=== PATIENT | female | born 1995 | race American Indian/Alaskan Native ===

== ENCOUNTER 2016-05-08 17:45 | Emergency (ER) | payer SELFPAY ==
[2016-05-08 17:56] VITALS: BP 148/104
--- NOTE | 2016-05-08 18:06 | Emergency Department Report ---
Chief Complaint: Abdominal Pain Stated Complaint: ABD PAIN /BLOATED Time Seen by Provider: 05/08/16 18:12 - HPI History of Present Illness: Patient presents with LLQ abdominal pain that radiates to the left side. Patient states abdominal pain has now resolved. She admits to being on her menstrual cycle now, denies urinary frequency, urgency, pain. She denies fever , chills, nausea, vomiting. She states that this pain hit her at one time and lasted approximately 5 minutes but has now resolved. Occurrence was today. She states she has never had this pain in the past. - ROS Review of Systems: All other systems unremarkable except documentation in HPI - Exam Vital Signs: Vital Signs 05/08/16 17:51 Temperature 98.7 F Pulse Rate 82 Respiratory 20 Rate Blood Pressure 148/104 O2 Sat by Pulse 99 Oximetry Physical Exam: Gen: Female well-developed and nourished, no apparent distress noted, ambulatory. Cardiovascular: Heart sounds present S1-S2, no murmur, gallop, edema or ectopy noted, 2+ pulses upper and lower extremities Respiratory: Chest symmetry with respirations, lungs clear to auscultate upper and lower lobes, respirations even and unlabored, no rales, rhonchi, crackles noted. Abdomen: bowel sounds present, soft, nondistended, nontender, no rigidity, guarding or rebound tenderness Psych: AxOx3, answers questions appropriately, mood full range, affect normal, normal speech and tone. MSE screening note: Focused history and physical exam performed. Due to findings the following was ordered: seen by provider, laboratory studies ordered, and to go to main ED to be seen by physician ED Medical Decision Making - Medical Decision Making seen by provider, laboratory studies ordered, and to go to main ED to be seen by physician ED Disposition for MSE Condition: Stable Instructions: Abdominal Pain (ED)
[2016-05-08 18:36] LABS: Basophils % (Auto) 0.4 % (0.0-1.8); Eosinophils % (Auto) 3.3 % (0.0-4.3); Hematocrit 38.5 % (30.3-42.9); Hemoglobin 12.5 gm/dl (10.1-14.3); Mean Corpuscular HGB Conc 32 % (30-34); Mean Corpuscular Hemoglobin 26 pg (28-32); Mean Corpuscular Volume 80 fl (79-97); Platelet Count 320 K/mm3 (140-440); Red Cell Distribution Width 14.8 % (13.2-15.2)
[2016-05-08 18:47] LABS: Bilirubin,Urine NEG (Negative); Blood,Urine MOD (Negative); Ketones,Urine NEG (Negative); Leukocyte Esterase,Urine SM (Negative); Nitrite,Urine NEG (Negative); Protein,Urine <15 mg/dL mg/dL (Negative); Urobilinogen,Urine < 2.0 mg/dL (<2.0)
[2016-05-08 18:56] LABS: Anion Gap 18 mmol/L; BUN/Creatinine Ratio 13.33; Blood Urea Nitrogen 8 mg/dL (7-17); Calcium 9.2 mg/dL (8.4-10.2); Carbon Dioxide 26 mmol/L (22-30); Glucose 114 mg/dL (65-100); Potassium 3.8 mmol/L (3.6-5.0); Sodium 139 mmol/L (137-145)
--- NOTE | 2016-05-10 15:14 | ED Elopement Review ---
ED Pt Elopement review - Results review Lab results: Laboratory Tests 05/08/16 05/08/16 05/08/16 18:18 18:23 18:23 WBC 6.0 RBC 4.80 Hgb 12.5 Hct 38.5 MCV 80 MCH 26 L MCHC 32 RDW 14.8 Plt Count 320 Lymph % (Auto) 45.5 H [place] % (Auto) 6.2 Eos % (Auto) 3.3 Baso % (Auto) 0.4 Lymph # 2.8 [place] # 0.4 Eos # 0.2 Baso # 0.0 Seg Neutrophils % 44.6 Seg Neutrophils # 2.7 Sodium 139 Potassium 3.8 Chloride 99.0 Carbon Dioxide 26 Anion Gap 18 BUN 8 Creatinine 0.6 L Estimated GFR > 60 BUN/Creatinine Ratio 13.33 Glucose 114 H Calcium 9.2 HCG, Qual Urine Color Yellow Urine Turbidity Clear Urine pH 6.0 Ur Specific [place] 1.012 Urine Protein <15 mg/dl Urine Glucose (UA) Neg Urine Ketones Neg Urine Blood Mod Urine Nitrite Neg Urine Bilirubin Neg Urine Urobilinogen < 2.0 Ur Leukocyte Esterase Sm Urine WBC (Auto) 7.0 H Urine RBC (Auto) 4.0 U Epithel Cells (Auto) 1.0 05/08/16 18:23 WBC RBC Hgb Hct MCV MCH MCHC RDW Plt Count Lymph % (Auto) [place] % (Auto) Eos % (Auto) Baso % (Auto) Lymph # [place] # Eos # Baso # Seg Neutrophils % Seg Neutrophils # Sodium Potassium Chloride Carbon Dioxide Anion Gap BUN Creatinine Estimated GFR BUN/Creatinine Ratio Glucose Calcium HCG, Qual Negative Urine Color Urine Turbidity Urine pH Ur Specific [place] Urine Protein Urine Glucose (UA) Urine Ketones Urine Blood Urine Nitrite Urine Bilirubin Urine Urobilinogen Ur Leukocyte Esterase Urine WBC (Auto) Urine RBC (Auto) U Epithel Cells (Auto) - Call Back decision Pt Call Back Decision: No action required
== END 2016-05-08 21:10 | disposition left against medical advice (07) ==
LOC: ED 17:45
DX: R10.9 Unspecified abdominal pain (principal); Z53.21 Procedure and treatment not carried out due to patient leaving prior to being seen by health care provider
CPT/HCPCS: 36415; 80048; 81001; 84703; 85025

== ENCOUNTER 2018-05-22 14:28 | Emergency (ER) | payer BC ==
--- NOTE | 2018-05-22 16:41 | Emergency Department Report ---
Chief Complaint: Sore Throat Stated Complaint: LFT SIDE TOOTH/THROAT PAIN Time Seen by Provider: 05/22/18 16:31 - HPI History of Present Illness: Pt presents to the ED with dental pain/throat pain got her wisdom teeth removed left sided swelling has not called dentist pt is already on amoxicillin, also on hydrocodone no fever uvula shifts to the left concern for peritonsillar abscess vs cellulitis MSE screening note: Focused history and physical exam performed. Due to findings the following was ordered: labs, CT neck ED Disposition for MSE Condition: Stable
[2018-05-22] MEDS ORDERED: NACL 0.9% 1000 ML 1,000 ML IV ONE ×3 (16:42→23:25)
[2018-05-22] MEDS ORDERED: MORPHINE IV ONE (16:42)
[2018-05-22 17:34] LABS: Basophils % (Auto) 0.3 % (0.0-1.8); Eosinophils % (Auto) 0.1 % (0.0-4.3); Hematocrit 38.6 % (30.3-42.9); Hemoglobin 12.4 gm/dl (10.1-14.3); Lymphocytes # (Auto) 2.4 K/mm3 (1.2-5.4); Lymphocytes % (Auto) 20.6 % (13.4-35.0); Mean Corpuscular HGB Conc 32 % (30-34); Mean Corpuscular Volume 80 fl (79-97); Monocytes # (Auto) 0.9 K/mm3 (0.0-0.8); Monocytes % (Auto) 7.4 % (0.0-7.3); Platelet Count 318 K/mm3 (140-440); Red Blood Count 4.82 M/mm3 (3.65-5.03); Red Cell Distribution Width 14.5 % (13.2-15.2)
--- NOTE | 2018-05-22 18:19 | Emergency Department Report ---
ED ENT HPI - General Chief complaint: Sore Throat Stated complaint: LFT SIDE TOOTH/THROAT PAIN Time Seen by Provider: 05/22/18 16:31 Source: patient Mode of arrival: Ambulatory Limitations: No Limitations - History of Present Illness Initial comments: Sustained 23-year-old -Australian female presents with a sore throat and left side of dental pain for 6 days. The patient states she had 4 wisdom teeth removed last Saturday. She was placed on antibiotics and given Delaplaine and steroids to control swelling and infection. Patient states there was a piece of bone sticking up on the left side so she followed up with oral surgeon and [facility] on [address] yesterday who shaved area down. She now complains of severe pain on left side. Patient reports pain is increased today and on control with Delaplaine. MD complaint: tooth pain Onset/Timin -: days(s) Location: throat, tooth # (#16 and #17) Severity: severe Severity scale (0 -10): 10 Quality: stabbing, sharp, constant Consistency: constant Improves with: none Worsens with: swallowing, eating Context- Dental: other (#1, #16, #17 and #32 extractions) Associated Symptoms: toothache - Related Data Previous Rx's Medication Instructions Recorded Last Taken Type Clindamycin [Clindamycin CAP] 300 mg PO Q8H #21 cap 05/22/18 Unknown Rx Allergies Allergy/AdvReac Type Severity Reaction Status Date / Time No Known Allergies Allergy Verified 05/22/18 14:31 ED Dental HPI - General Chief complaint: Sore Throat Stated complaint: LFT SIDE TOOTH/THROAT PAIN Time Seen by Provider: 05/22/18 16:31 Source: patient Mode of arrival: Ambulatory Limitations: No Limitations - Related Data Previous Rx's Medication Instructions Recorded Last Taken Type Clindamycin [Clindamycin CAP] 300 mg PO Q8H #21 cap 05/22/18 Unknown Rx Allergies Allergy/AdvReac Type Severity Reaction Status Date / Time No Known Allergies Allergy Verified 05/22/18 14:31 ED Review of Systems ROS: Stated complaint: LFT SIDE TOOTH/THROAT PAIN Other details as noted in HPI Constitutional: denies: chills, fever ENT: dental pain. denies: ear pain, throat pain Respiratory: denies: cough, shortness of breath, wheezing Cardiovascular: denies: chest pain, palpitations Gastrointestinal: denies: abdominal pain, nausea, diarrhea Skin: denies: rash, lesions Neurological: denies: headache, weakness, paresthesias Psychiatric: denies: anxiety, depression ED Past Medical Hx - Past Medical History Previous Medical History?: No - Surgical History Past Surgical History?: Yes Additional Surgical History: Heart ablation @ age 5 - Social History Smoking Status: Never Smoker Substance Use Type: None - Medications Home Medications: Home Medications Medication Instructions Recorded Confirmed Last Taken Type Clindamycin [Clindamycin CAP] 300 mg PO Q8H #21 cap 05/22/18 Unknown Rx ED Physical Exam - General Limitations: No Limitations General appearance: alert, in no apparent distress, obese (morbidly obese) - ENT ENT exam: Present: mucous membranes moist, other (moderate swelling to left posterior mucosal area of #17, tooth removed with sutures placed, tenderness, uvula midline) - Respiratory Respiratory exam: Present: normal lung sounds bilaterally. Absent: respiratory distress - Cardiovascular Cardiovascular Exam: Present: regular rate, normal rhythm. Absent: systolic murmur, diastolic murmur, rubs, gallop - GI/Abdominal GI/Abdominal exam: Present: soft, normal bowel sounds - Neurological Exam Neurological exam: Present: alert, oriented X3 - Psychiatric Psychiatric exam: Present: normal affect, normal mood - Skin Skin exam: Present: warm, dry, intact, normal color. Absent: rash ED Course Vital Signs 05/22/18 05/22/18 05/22/18 16:32 17:47 23:20 Temperature 98.9 F Pulse Rate 113 H 122 H Respiratory 16 18 19 Rate Blood Pressure 132/84 Blood Pressure 125/78 [Right] O2 Sat by Pulse 98 Oximetry 05/23/18 05/23/18 00:21 00:45 Temperature 99.0 F 99.6 F Pulse Rate 108 H 110 H Respiratory 18 18 Rate Blood Pressure Blood Pressure 120/71 [Right] O2 Sat by Pulse 100 97 Oximetry ED Medical Decision Making - Lab Data Result diagrams: 05/22/18 17:15 05/22/18 17:15 Lab Results 05/22/18 05/22/18 05/22/18 Range/Units 17:15 17:15 18:27 WBC 11.7 H (4.5-11.0) K/mm3 RBC 4.82 (3.65-5.03) M/mm3 Hgb 12.4 (10.1-14.3) gm/dl Hct 38.6 (30.3-42.9) % MCV 80 (79-97) fl MCH 26 L (28-32) pg MCHC 32 (30-34) % RDW 14.5 (13.2-15.2) % Plt Count 318 (140-440) K/mm3 Lymph % (Auto) 20.6 (13.4-35.0) % [place] % (Auto) 7.4 H (0.0-7.3) % Eos % (Auto) 0.1 (0.0-4.3) % Baso % (Auto) 0.3 (0.0-1.8) % Lymph # 2.4 (1.2-5.4) K/mm3 [place] # 0.9 H (0.0-0.8) K/mm3 Eos # 0.0 (0.0-0.4) K/mm3 Baso # 0.0 (0.0-0.1) K/mm3 Seg Neutrophils % 71.6 H (40.0-70.0) % Seg Neutrophils # 8.4 H (1.8-7.7) K/mm3 Sodium 136 L (137-145) mmol/L Potassium 4.1 (3.6-5.0) mmol/L Chloride 96.6 L (98-107) mmol/L Carbon Dioxide 22 (22-30) mmol/L Anion Gap 22 mmol/L BUN 8 (7-17) mg/dL Creatinine 0.7 (0.7-1.2) mg/dL Estimated GFR > 60 ml/min BUN/Creatinine Ratio 11 % Glucose 109 H (65-100) mg/dL Calcium 9.3 (8.4-10.2) mg/dL HCG, Qual (Negative) Urine HCG, Qual Negative (Negative) 05/22/18 Range/Units Unknown WBC (4.5-11.0) K/mm3 RBC (3.65-5.03) M/mm3 Hgb (10.1-14.3) gm/dl Hct (30.3-42.9) % MCV (79-97) fl MCH (28-32) pg MCHC (30-34) % RDW (13.2-15.2) % Plt Count (140-440) K/mm3 Lymph % (Auto) (13.4-35.0) % [place] % (Auto) (0.0-7.3) % Eos % (Auto) (0.0-4.3) % Baso % (Auto) (0.0-1.8) % Lymph # (1.2-5.4) K/mm3 [place] # (0.0-0.8) K/mm3 Eos # (0.0-0.4) K/mm3 Baso # (0.0-0.1) K/mm3 Seg Neutrophils % (40.0-70.0) % Seg Neutrophils # (1.8-7.7) K/mm3 Sodium (137-145) mmol/L Potassium (3.6-5.0) mmol/L Chloride (98-107) mmol/L Carbon Dioxide (22-30) mmol/L Anion Gap mmol/L BUN (7-17) mg/dL Creatinine (0.7-1.2) mg/dL Estimated GFR ml/min BUN/Creatinine Ratio % Glucose (65-100) mg/dL Calcium (8.4-10.2) mg/dL HCG, Qual Negative (Negative) Urine HCG, Qual (Negative) - Radiology Data Radiology results: report reviewed PROCEDURE: CT NECK W CON HISTORY: recent dental procedure, r/o peritonsillar abscess FINDINGS: Contrast-enhanced CT of the neck was performed following the intravenous administration of iodinated contrast. There is a left superior pharyngeal abscess, immediately posterior to the maxilla and pterygoid plates, axial image 19, sagittal image 52, 2.2 x 2.0 x 2.2 cm. There is a normal epiglottis. The larynx is within normal limits. There is a right submandibular circumscribed fat density structure, consistent with lipoma, axial image 46, sagittal image 68, 1.9 x 2.1 x 1.4 cm. The right and left common carotid, internal carotid, external carotid and vertebral arteries appear widely patent. The pulmonary apices appear clear. IMPRESSION: Left superior pharyngeal abscess posterior to left pterygoid plates and left maxilla - Medical Decision Making This is a 23-year-old female that presents with tooth abscess and pain to left lower side. Patient is stable and was examined by me. Given morphine, norco, and normal saline in ER. A CBC, BMP, tests, and CT of neck was obtained. Consult with radiologist who states there is a posterior abscess to left maxilla in the same area where patient had wisdom tooth removed. There is not a peritonsillar abscess visualized. Patient given clindamicyin 600 mg IV. Dental abscess left posterior maxilla. Instructed to stop taken Augmentin and start clindamycin. Patient will need to follow-up with dentist [facility] for further management. Discussed plan with patient. She agreed with ER plan. Discharged home with clindamycin and instructed to continue taking norco presc ribed by dentist. Follow up with dentist and referral to ENT. Critical care attestation.: If time is entered above; I have spent that time in minutes in the direct care of this critically ill patient, excluding procedure time. ED Disposition Clinical Impression: Dental abscess, Toothache Disposition: TO HOME OR SELFCARE Is pt being admited?: No Does the pt Need Aspirin: No Condition: Stable Instructions: Dental Abscess (ED) Additional Instructions: Start taking clindamycin 1 tablet by mouth 3 times a day. Follow-up with your dentist [facility] for management of abscess behind tooth. Continue taking her current pain medication prescribed by dentist. There is a referral to ear nose and throat if you are unable to get in contact with dentist follow-up below. Return to the emergency room if increased swelling, pain, difficulty swallowing. Prescriptions: Clindamycin [Clindamycin CAP] 300 mg PO Q8H #21 cap Referrals: [facility] MD ZACKERY [Primary Care Provider] - 3-5 Days CHARAN BULLARD MD [Staff Physician] - 3-5 Days Ezra Catalan [Other] - 3-5 Days Forms: Work/School Release Form(ED)
[2018-05-22 19:39] LABS: HCG Qualitative,Urine Negative (Negative)
--- NOTE | 2018-05-22 21:10 | Cat Scan Report ---
PROCEDURE: CT NECK W CON HISTORY: recent dental procedure, r/o peritonsillar abscess FINDINGS: Contrast-enhanced CT of the neck was performed following the intravenous administration of iodinated contrast. There is a left superior pharyngeal abscess, immediately posterior to the maxilla and pterygoid plate s, axial image 19, sagittal image 52, 2.2 x 2.0 x 2.2 cm. There is a normal epiglottis. The larynx is within normal limits. There is a right submandibular circumscribed fat density structure, consistent with lipoma, axial myra ge 46, sagittal image 68, 1.9 x 2.1 x 1.4 cm. The right and left common carotid, internal carotid, external carotid and vertebral arteries appear w idely patent. The pulmonary apices appear clear. IMPRESSION: Left superior pharyngeal abscess posterior to left pterygoid plates and left maxilla This document is electronically signed by Jaspal Savage MD., May 22 2018 09:08:26 PM ET
[2018-05-22 21:47] LABS: BUN/Creatinine Ratio 11; Blood Urea Nitrogen 8 mg/dL (7-17); Calcium 9.3 mg/dL (8.4-10.2); Hemolysis Index 3
[2018-05-22] MEDS ORDERED: CLEOCIN 600 MG/50 mL 600 MG/50 ML BAG IV ONE (21:56)
[2018-05-22] MEDS ORDERED: NORCO 7.5/325 PO ONE (22:15)
[2018-05-22] MEDS ORDERED: NACL 0.9% 1000 ML 1,000 ML ONE (23:23)
[2018-05-23 00:46] VITALS: BP 120/71
== END 2018-05-23 00:47 | disposition home or self-care (01) ==
LOC: ED 14:28
DX: K04.7 Periapical abscess without sinus (principal)
CPT/HCPCS: 36415; 70491; 80048; 81025; 84703; 85025; 96365; 96366; 96375; 99284; J2270; J7030; Q9967